=== PATIENT | female | born 1985 | race Caucasian/White ===

== ENCOUNTER 2020-07-11 18:25 | Emergency (ER) | payer OTHER ==
--- NOTE | 2020-07-11 20:02 | RAD ---
RADIOGRAPH CHEST 1 VIEW: 07/11/20 at 7:37 p.m. HISTORY: 34-year-old female status post acute chest trauma due to fall from truck. FINDINGS: The visualized lung colin are clear. The cardiomediastinal silhouette and hilar shadows are normal. The lateral costophrenic angles are sharp. The osseous structures appear normal. There is no pneu mothorax. IMPRESSION: Negative. jn [] POS: JIN
--- NOTE | 2020-07-11 20:13 | RAD ---
RADIOGRAPH RIGHT SCAPULA 2 VIEWS: 07/11/20 at 7:41 p.m. HISTORY: 34-year-old female with acute traumatic left scapular pain due to fall from truck. FINDINGS: The ER physician ordered a left scapula study. Instead, the secure software assessor performed a two view study o f the contralateral right scapula, and inadvertently labeled it as the left. There is no fracture or dislocation of the glenohumeral joint or the right scapula. IMPRESSION: 1. The wrong side was imaged. This is a normal right scapula. 2. Recommend radiographic study of the actual, correct left scapula. POS: JIN
[2020-07-11] MEDS ORDERED: Fentanyl 100 MCG/2 ML VIAL ONE (20:17)
[2020-07-11] MEDS ORDERED: Ibuprofen 800 MG TAB ONE (20:18)
[2020-07-11] MEDS ORDERED: Acetaminophen 325 MG TAB ONE (20:18)
[2020-07-11] MEDS ORDERED: HYDROcodone/Acetaminophen 5/325 mg Tablet ONE ×2 (20:40→23:05)
--- NOTE | 2020-07-11 21:11 | RAD ---
RADIOGRAPH LEFT SCAPULA 2 VIEWS: 07/11/20 at 8:54 p.m. HISTORY: 34-year-old female with acute, traumatic left scapular pain due to fall from truck. FINDINGS: No displaced fracture of the left scapula is identified. No acute fracture of the proximal humerus. N o dislocation of glenohumeral joint. There is focal osseous thickening and mild angulation at mid cla vicular diaphysis. IMPRESSION: 1. No evidence of acute fracture. 2. Old healed left mid clavicular fracture deformity. POS: JIN
--- NOTE | 2020-07-12 01:23 | CON ---
DATE OF CONSULTATION: 07/11/2020 HISTORY OF PRESENT ILLNESS: The patient is a 34-year-old female who was transferred from [facility] for cervical fractures. The patient reports that yesterday she was attempting to get out of her boyfriend's lifted truck when she fell, lost her balance, fell backwards and landed on her left side. Since this event, she has had some increased neck pain and left shoulder pain as well as some headaches. She was brought to [facility] where she was evaluated with CT of the head, CT of the cervical spine, and CTA of the neck. CT of the brain was negative for acute injury. CT of the cervical spine, however, was notable for left-sided fractures of the C6 and C7 facet, which are mildly comminuted, but overall nondisplaced. There was also a fracture through the transverse foramen of the left C7. CTA was negative for arterial injury. She was transferred from [place] to [facility] for neurosurgical consultation. She has been placed in Savage collar prior to transfer. Yesterday, she was complaining of some tingling initially to the arms but this has resolved. She denies any weakness, classic radicular features, or difficulty ambulating. PAST MEDICAL HISTORY: Otherwise, healthy. PAST SURGICAL HISTORY: Breast reduction, right finger, left foot, tummy tuck. SOCIAL HISTORY: The patient lives at home. She is a smoker. She does not drink or use any drugs. REVIEW OF SYSTEMS: Per HPI. PHYSICAL EXAMINATION: VITAL SIGNS: Stable. CONSTITUTIONAL: Awake and alert, in no acute distress. HEENT: Head, normocephalic and atraumatic. Eyes, PERRLA. Extraocular movements intact. ENT, pink, intact and moist. NECK: She is currently being immobilized in a cervical collar, Savage. I did not remove or attempt to palpate the cervical spine considering her underlying imaging. Her cervical collar does appear slightly large for her size. CARDIAC: Regular rhythm. PULMONARY: Symmetric chest expansion. No evidence of dyspnea. MUSCULOSKELETAL: She has pain with range of motion, particularly in the left shoulder and some point tenderness over the left shoulder. Symmetric pulses. NEUROLOGIC: A and O x4. No focal neurologic deficits are appreciated. ASSESSMENT AND PLAN: Patient has new left C6 and C7 facet fractures, these are nondisplaced and there is no evidence of arterial injury. We will plan to treat these conservatively in a cervical collar. I have asked the ER to transition her to a smaller Savage collar, which she should wear at all times. I have also advised them to give her a Villalba collar for showering purposes. I have prescribed her a prescription for Tylenol 4 and Zanaflex for pain. We will arrange 4-week followup with repeat x-rays with Dr. Hernandez. Job ID: [id number] MTDD
== END 2020-07-11 23:17 | disposition home or self-care (01) ==
LOC: ERS 18:25
DX: S12.500A Unspecified displaced fracture of sixth cervical vertebra, initial encounter for closed fracture (principal); S40.012A Contusion of left shoulder, initial encounter; F41.9 Anxiety disorder, unspecified; F17.210 Nicotine dependence, cigarettes, uncomplicated; X50.0XXA Overexertion from strenuous movement or load, initial encounter
CPT/HCPCS: 71045; J3010

== ENCOUNTER 2020-07-27 13:22 | Outpatient (CLI) | payer OTHER ==
--- NOTE | 2020-07-27 14:26 | RAD ---
CERVICAL SPINE SERIES FOUR VIEWS: 07/27/20 HISTORY: Follow-up of fracture. Vertebral bodies are normal in height. There is reversal to the normal cervical curve. Bones appear d emineralized. Facet fracture at C7 is somewhat difficult to visualize on plain film but the facets ap pear to be normal alignment. Anterolisthesis of C2 on C3 is similar to the prior exam. IMPRESSION: Stable exam. POS: RENO
== END 2020-07-27 13:23 | disposition home or self-care (01) ==
LOC: TBSIIMAG 13:22
PROVIDERS: ATTEND Physician Assistant
DX: S12.600D Unspecified displaced fracture of seventh cervical vertebra, subsequent encounter for fracture with routine healing (principal)
CPT/HCPCS: 72040

== ENCOUNTER 2021-04-10 15:25 | Outpatient (CLI) | payer OTHER | END 2021-04-10 15:26 | disposition home or self-care (01) | LOC: TBSIIMAG 15:25 | PROVIDERS: ATTEND Neurological Surgery | DX: S12.9XXA Fracture of neck, unspecified, initial encounter (principal); M43.12 Spondylolisthesis, cervical region; M47.812 Spondylosis without myelopathy or radiculopathy, cervical region | CPT/HCPCS: 72050 ==